=== PATIENT | female | born 1960 | race Two or more races ===

== ENCOUNTER 2017-04-03 06:05 | Emergency (ER) | payer OTHER ==
[~2017-04-03] VITALS: Ht 175.3 cm; Wt 74.4 kg
--- NOTE | 2017-04-03 06:16 | NUR ---
57 YO FEMALE BB FAMILY. PATIENT IS A/O X 3, C/O FEVER, NAUSEA, VOMIT SINCE MONDAY. PATIENT AMBULATED TO ER BED, SKIN WARM AND DRY, RESP EVEN AND UNLABORED. 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 AWAITING ORDERS FROM PROVIDER, WILL CONTINUE TO MONITOR
[2017-04-03] MEDS ORDERED: HYDROCODONE BIT/HOMATROPINE 5 ML UDC ONE (06:34)
[2017-04-03] MEDS ORDERED: KETOROLAC TROMETHAMINE INJ 30 MG/ML VIAL ONE (06:34)
[2017-04-03] MEDS ORDERED: ONDANSETRON HCL/PF 4 MG/2 ML VIAL ONE (06:34)
--- NOTE | 2017-04-03 06:50 | NUR ---
20G LEFT WRIST IV STARTED. BLOOD SAMPLE OBTAINED AND SENT TO LAB. MEDICATED PT ORDERED
[2017-04-03] MEDS: HYDROCODONE BIT/HOMATROPINE 5 ML UDC PO ONE (06:53)
[2017-04-03] MEDS: KETOROLAC TROMETHAMINE INJ 30 MG/ML VIAL IV ONE (06:53)
[2017-04-03] MEDS: ONDANSETRON HCL/PF - ER 4 MG/2 ML VIAL IV ONE (06:53)
[2017-04-03] MEDS: IV NS 0.9% 1,000 ML BAG IV ONE (06:53)
[2017-04-03 07:02] LABS: BASOPHILS % (AUTO) 0.2 % (0.0-2.0); EOSINOPHILS % (AUTO) 0.1 % (0.0-6.0); HEMATOCRIT 39 % (33-45); HEMOGLOBIN 13.3 g/dL (11.5-14.8); LYMPHOCYTES # (AUTO) 0.6 /CMM (0.8-4.8); LYMPHOCYTES % (AUTO) 7.2 % (20.0-44.0); MEAN CORPUSCULAR HEMOGLOBIN 30 PG (26.0-33.0); MEAN CORPUSCULAR HGB CONC 34 g/dl (31.0-36.0); MEAN CORPUSCULAR VOLUME 87 fL (82-100); MONOCYTES # (AUTO) 0.3 /CMM (0.1-1.30); MONOCYTES % (AUTO) 4.1 % (2.0-12.0); NEUTROPHILS # (AUTO) 7.1 /CMM (1.8-8.9); NEUTROPHILS % (AUTO) 88.4 % (43.0-81.0); PLATELET COUNT (AUTO) 244 /CMM (150-450); RDW COEFFICIENT OF VARIATION 13.7 (11.5-15.0); RED BLOOD CELL COUNT(AUTO) 4.44 MIL/uL (4.0-5.2)
[2017-04-03 07:22] LABS: ALBUMIN 4.3 g/dL (3.4-5.0); BILIRUBIN,TOTAL 0.7 mg/dL (0.2-1.0); CALCIUM, SERUM 8.9 mg/dL (8.5-10.1); CREATININE 0.9 mg/dL (0.6-1.3); POTASSIUM 3.5 mmol/L (3.5-5.1); TOTAL PROTEIN, SERUM 8.1 g/dL (6.4-8.2)
--- NOTE | 2017-04-03 07:56 | NUR ---
IV removed. Catheter intact and site benign. Pressure and 4x4 applied to site. No bleeding noted.
--- NOTE | 2017-04-03 07:56 | NUR ---
Patient discharged to home in stable condition. Written and verbal after care instructions given. Patient verbalizes understanding of instruction.
[2017-04-03 07:57] VITALS: BP 110/67
== END 2017-04-03 07:59 | disposition home or self-care (01) ==
LOC: ER 06:08
DX: J10.1 Influenza due to other identified influenza virus with other respiratory manifestations (principal)
CPT/HCPCS: 36415; 71045; 80053; 85025; 87804 ×2; 96361; 96374; 96375; 99285; A4606; J1885; J2405 ×2; Z7610; 87400

== ENCOUNTER 2017-04-05 00:35 | Emergency (ER) | payer OTHER ==
[~2017-04-05] VITALS: Ht 175.3 cm; Wt 69.9 kg
[2017-04-05 00:46] VITALS: BP 123/71
--- NOTE | 2017-04-05 00:55 | NUR ---
Pt has decided she no longer wishes to be seen by a MD. pt ambulatory w/ steady gait, afebrile w/ resp even & unlabored, VSS. pt has left the ER w/ family.
== END 2017-04-05 00:55 | disposition left against medical advice (07) ==
LOC: ER 00:38
DX: Z53.21 Procedure and treatment not carried out due to patient leaving prior to being seen by health care provider (principal)
CPT/HCPCS: A4606; Z7610

== ENCOUNTER 2018-05-29 00:46 | Inpatient (IN) | payer OTHER ==
[~2018-05-29] VITALS: Ht 167.6 cm; Wt 76.4 kg
--- NOTE | 2018-05-29 01:07 | NUR ---
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 TOOK 1 NITRO, PAIN WENT DOWN FROM 10/10 TO 7/10. NO ASA TAKEN. PT AOX4. NAD NOTED. RESP EVEN AND UNLABORED. PT ON MONITOR IN BED 9 WITH DAUGHTER AT BEDSIDE. WILL CONTINUE TO MONITOR.
--- NOTE | 2018-05-29 01:08 | NUR ---
TECH AT BEDSIDE FOR EKG
--- NOTE | 2018-05-29 01:31 | NUR ---
PHLEB AT BEDSIDE FOR BLOOD DRAW
[2018-05-29 01:41] LABS: BASOPHILS # (AUTO) 0.1 /CMM (0.0-0.2); BASOPHILS % (AUTO) 0.6 % (0.0-2.0); EOSINOPHILS % (AUTO) 0.3 % (0.0-6.0); HEMATOCRIT 41 % (33-45); HEMOGLOBIN 13.4 g/dL (11.5-14.8); LYMPHOCYTES # (AUTO) 1.9 /CMM (0.8-4.8); LYMPHOCYTES % (AUTO) 15.3 % (20.0-44.0); MEAN CORPUSCULAR HGB CONC 33 g/dl (31.0-36.0); MEAN CORPUSCULAR VOLUME 90 fL (82-100); MONOCYTES # (AUTO) 0.7 /CMM (0.1-1.30); MONOCYTES % (AUTO) 5.6 % (2.0-12.0); NEUTROPHILS # (AUTO) 9.9 /CMM (1.8-8.9); NEUTROPHILS % (AUTO) 78.2 % (43.0-81.0); PLATELET COUNT (AUTO) 456 /CMM (150-450); RED BLOOD CELL COUNT(AUTO) 4.54 MIL/uL (4.0-5.2); WHITE BLOOD COUNT (AUTO) 12.7 K/uL (4.3-11.0)
[2018-05-29 01:49] LABS: CREATININE 0.6 mg/dL (0.6-1.3); POTASSIUM 3.8 mmol/L (3.5-5.1)
--- NOTE | 2018-05-29 01:50 | NUR ---
RADIOLOGY AT BEDSIDE FOR XRAY
--- NOTE | 2018-05-29 02:08 | NUR ---
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
[2018-05-29] MEDS ORDERED: HEPARIN INFUSION/D5W 500 ML IV ONE ×2 (02:26→02:30)
[2018-05-29] MEDS ORDERED: ZOLPIDEM TARTRATE 5 MG TABLET PO PRN (02:30)
[2018-05-29] MEDS ORDERED: ACETAMINOPHEN 325 MG TABLET PO PRN (02:30)
[2018-05-29] MEDS ORDERED: HEPARIN SODIUM, PORCINE 5000 UNITS/1 ML VIAL IV ONE (02:30)
[2018-05-29] MEDS ORDERED: ONDANSETRON HCL/PF 4 MG/2 ML VIAL IVP PRN (02:30)
[2018-05-29] MEDS ORDERED: HYDROCODONE/APAP 5/325MG 1 EACH TABLET PO PRN (02:30)
[2018-05-29] MEDS ORDERED: MAGNESIUM HYDROXIDE 30 ML UDC PO PRN (02:30)
[2018-05-29] MEDS ORDERED: Z GUARD REMEDY 2 OZ OINT TP PRN (02:30)
[2018-05-29] MEDS ORDERED: MAG HYDROX/AL HYDROX/SIMETH 30 ML UDC PO PRN (02:30)
[2018-05-29] MEDS ORDERED: ASPIRIN 81 MG TAB.CHEW PO ONE (02:30)
--- NOTE | 2018-05-29 02:39 | NUR ---
CALLED [facility] TO TRANSFER FOR HIGHER LEVEL OF CARE. UNABLE TO ACCEPT DUE TO NO TELE BEDS.
--- NOTE | 2018-05-29 03:04 | NUR ---
CALLED [facility] FOR POSSIBLE TRANSFER FOR HIGHER LEVEL OF CARE. FAXED CLINICALS. WAITINF FOR CALL BACK.
--- NOTE | 2018-05-29 03:40 | NUR ---
REPORT GIVEN TO JOÃO DORSEY FOR [facility]
--- NOTE | 2018-05-29 04:20 | NUR ---
TELE/RN RECEIVE PATIENT FROM [facility]IA [facility] ADMITTED FOR CP WITH HEPARIN DRIP AT 1,155 UNITS PER HOUR. PATIENT IS AWAKE, ALERT, ORIENTED, NO C/O OF CP AT THIS TIME, NO DISTRESS NOTED, ADMISSION DONE PER PROTOCOL, PLAN OF CARE DISCUSSED WITH THE PATIENT VERBALIZED UNDERSTANDING AND AGREEMENT. TAUGHT THE USE OF CALL LIGHT AND PLACED AT BEDSIDE WITHIN REACH. PATIENT IS VIETNAMESE SPEAKING, DAUGHTER AT BEDSIDE SPEAKS GOOD ROMANIAN AND INTERPRETS FOR THE PATIENT. WILL MONITOR.
--- NOTE | 2018-05-29 05:02 | NUR ---
TELE/RN CALLED [facility] TO SPEAK TO DR. PATTERSON TO GET ORDER FOR THE HEPARIN DRIP. LEFT MESSAGE.
[2018-05-29 05:30] VITALS: BP 106/67
--- NOTE | 2018-05-29 06:52 | NUR ---
TELE/RN PATIENT IS AWAKE AT THIS TIME, COMFORTABLE, NO C/O PAIN, NO DISTRESS NOTED, ALL NEEDS ATTENDED AT THIS TIME, WILL CONTINUE TO MONITOR.
--- NOTE | 2018-05-29 06:52 | NUR ---
TELE/RN NO CALL BACK FROM DR. JENSEN YET, ATTEMPTED TO CALL [facility] BUT UNSUCCESSFUL. WILL ENDORSE TO NEXT RN.
--- NOTE | 2018-05-29 07:30 | NUR ---
Tele/RN - Assessment Patient in bed awake, alert and oriented x 4, denies chest pain at this time, stable on room air, tele shows SR. Patient currently on heparin drip per [facility] weight based protocol. Patient was placed on NPO for possible procedure. Skin is intact. Patient is ambulatory with steady gait. All needs attended. Patient and daughter at bedside updated on plan of care. Will continue with current medical management.
[2018-05-29] MEDS ORDERED: HEPARIN INFUSION/D5W 500 ML IV PRN (07:45)
--- NOTE | 2018-05-29 07:45 | NUR ---
Tele/RN - Heparin order Continue heparin order from ER per David Ochoa NP. Patient will be transferred to [facility] for cardiac cath today, accepting doctor is Dr. Lockhart.
[2018-05-29 08:00] VITALS: BP 117/72
[2018-05-29] MEDS ORDERED: NITROGLYCERIN 0.4 MG/TAB BOTTLE SL PRN (08:00)
[2018-05-29] MEDS ORDERED: MORPHINE SULFATE INJ 4 MG/ML DISP.SYRIN IV PRN (08:00)
[2018-05-29 08:57] LABS: CHOLESTEROL 235 mg/dL (<200); HDL CHOLESTEROL 86 mg/dL (40-60); LDL 134 mg/dL (0-99); TRIGLYCERIDES 59 mg/dL (30-150)
[2018-05-29 09:00] VITALS: BP 117/71
[2018-05-29] MEDS ORDERED: ATORVASTATIN 40 MG TABLET PO SCH (09:00)
[2018-05-29] MEDS ORDERED: METOPROLOL TARTRATE 25 MG TABLET PO SCH (09:00)
--- NOTE | 2018-05-29 09:10 | NUR ---
Tele/RN - Discharge Patient transferred to [facility] for cardiac cath. Discharge instructions given to patient and daughter both verbalized understanding. Discharge papers were signed by the patient, no belongings on file. Patient will continue heparin drip at 1155 units/hr (23 ml/hr) as ordered. Report given to JOÃO Bowling ([facility] transport) for continuity of care. Called to give report to [place] radiographer cardiac catheterization at [phone] but no answer. JOÃO Bowling made aware.
== END 2018-05-29 09:10 | disposition short-term general hospital (02) | DRG 190 ==
LOC: ER 00:47 → TELE 03:17
PROVIDERS: ADMIT Nurse Practitioner Acute Care; ATTEND Nurse Practitioner Acute Care
DX: I21.4 Non-ST elevation (NSTEMI) myocardial infarction (principal); D72.829 Elevated white blood cell count, unspecified; E66.9 Obesity, unspecified; Z68.27 Body mass index [BMI] 27.0-27.9, adult; R73.9 Hyperglycemia, unspecified
CPT/HCPCS: 36415; 71045-TC; 80048-TC; 80061-TC; 83880; 84484-TC; 85025-TC; 85610-TC; 85730-TC; 93307-TC; G0378; J1644

== ENCOUNTER 2019-05-19 19:07 | Inpatient (IN) | payer OTHER ==
[~2019-05-19] VITALS: Ht 170.2 cm; Wt 79.4 kg
--- NOTE | 2019-05-19 19:20 | NUR ---
BIB DTR FOR C/O L CP RADITING TO THE BACK X 2 DAYS, -SOB, -N/V
--- NOTE | 2019-05-19 19:28 | NUR ---
AT THE BED SIDE
[2019-05-19 19:59] LABS: BASOPHILS # (AUTO) 0.1 /CMM (0.0-0.2); BASOPHILS % (AUTO) 0.8 % (0.0-2.0); EOSINOPHILS % (AUTO) 2.1 % (0.0-6.0); HEMATOCRIT 39 % (33-45); LYMPHOCYTES # (AUTO) 2.2 /CMM (0.8-4.8); LYMPHOCYTES % (AUTO) 26.9 % (20.0-44.0); MEAN CORPUSCULAR HGB CONC 33 g/dl (31.0-36.0); MEAN CORPUSCULAR VOLUME 92 fL (82-100); MONOCYTES # (AUTO) 0.6 /CMM (0.1-1.30); MONOCYTES % (AUTO) 6.9 % (2.0-12.0); NEUTROPHILS # (AUTO) 5.1 /CMM (1.8-8.9); NEUTROPHILS % (AUTO) 63.3 % (43.0-81.0); PLATELET COUNT (AUTO) 374 /CMM (150-450); RED BLOOD CELL COUNT(AUTO) 4.27 MIL/uL (4.0-5.2); WHITE BLOOD COUNT (AUTO) 8.1 K/uL (4.3-11.0)
[2019-05-19 20:30] LABS: ALANINE AMINOTRANSFERASE 31 U/L (12-78); ALBUMIN 3.9 g/dL (3.4-5.0); ALKALINE PHOSPHATASE 105 U/L (46-116); ASPARTATE AMINOTRANSFERASE 26 U/L (15-37); BILIRUBIN,DIRECT 0.1 mg/dL (0.0-0.2); BILIRUBIN,TOTAL 0.4 mg/dL (0.2-1.0); CALCIUM, SERUM 8.9 mg/dL (8.5-10.1); CARBON DIOXIDE 28 mmol/L (21-32); CHLORIDE 106 mmol/L (98-107); CREATININE 0.7 mg/dL (0.6-1.3); GLUCOSE 103 mg/dL (74-106); POTASSIUM 4.2 mmol/L (3.5-5.1); SODIUM SERUM 140 mmol/L (136-145); TOTAL PROTEIN, SERUM 7.6 g/dL (6.4-8.2); UREA NITROGEN, BLOOD 13 mg/dL (7-18)
[2019-05-19] MEDS ORDERED: ASPI-1169 PO (20:36)
[2019-05-19] MEDS ORDERED: LISI2.5T2 PO (20:36)
[2019-05-19] MEDS ORDERED: CARV3.12 PO (20:36)
--- NOTE | 2019-05-19 20:55 | NUR ---
GAVE MOVESHEET AND CLINICALS TO ADMITTING
[2019-05-19] MEDS ORDERED: ASPIRIN 325 MG TABLET PO ONE (21:30)
[2019-05-19] MEDS ORDERED: ASPIRIN 325 MG TABLET ONE (21:39)
--- NOTE | 2019-05-19 22:18 | NUR ---
dr. lopez at the bed side
--- NOTE | 2019-05-19 22:40 | NUR ---
dr Donald hospitalist at the bed side
[2019-05-19] MEDS ORDERED: HYDROCODONE/APAP 5/325MG 1 EACH TABLET PO PRN (23:00)
[2019-05-19] MEDS ORDERED: ACETAMINOPHEN 325 MG TABLET PO PRN (23:00)
[2019-05-19] MEDS ORDERED: Z GUARD REMEDY 2 OZ OINT TP PRN (23:00)
[2019-05-19] MEDS ORDERED: MAG HYDROX/AL HYDROX/SIMETH 30 ML UDC PO PRN (23:00)
[2019-05-19] MEDS ORDERED: ONDANSETRON HCL/PF 4 MG/2 ML VIAL IVP PRN (23:00)
[2019-05-19] MEDS ORDERED: MAGNESIUM HYDROXIDE 30 ML UDC PO PRN (23:00)
[2019-05-19] MEDS ORDERED: ZOLPIDEM TARTRATE 5 MG TABLET PO PRN (23:00)
--- NOTE | 2019-05-19 23:04 | NUR ---
REPROT GIVEN TO ELENA ON THE FIRST FLOOR
[2019-05-20] VITALS (7 sets, daily range): BP systolic 108–150; BP diastolic 49–86
--- NOTE | 2019-05-20 00:20 | NUR ---
pt was transferred to rm 119 under ACLS
--- NOTE | 2019-05-20 00:35 | NUR ---
RN NOTE PT ARRIVED TO UNIT RECEIVED REPORT FROM JANET MOYER. PT A/O X 4 LATVIAN SPEAKING. IV SITE TO RIGHT AC INTACT AND FLUSHING WELL. PT PLACED ON TELE MONITOR CURRENTLY SR 85. FAMILY AT BEDSIDE. BRUNO IN LOWEST POSITION CALL LIGHT WITHIN REACH. WILL AWAIT FOR ORDERS FROM
--- NOTE | 2019-05-20 07:00 | NUR ---
RN CLOSING NOTE PT ASLEEP IN BED, IV SITE TO RIGHT AC PATENT AND INTACT, BED IN LOWEST POSITION, CALL LIGHT WITHIN REACH . TELE MONITOR CURRENTLY SR 65. WILL ENDORSE TO AM NURSE FOR BROWN
[2019-05-20 07:29] LABS: BASOPHILS % (AUTO) 0.6 % (0.0-2.0); EOSINOPHILS % (AUTO) 2.7 % (0.0-6.0); HEMATOCRIT 36 % (33-45); HEMOGLOBIN 12.1 g/dL (11.5-14.8); LYMPHOCYTES # (AUTO) 2.2 /CMM (0.8-4.8); LYMPHOCYTES % (AUTO) 33.1 % (20.0-44.0); MEAN CORPUSCULAR HGB CONC 33 g/dl (31.0-36.0); MEAN CORPUSCULAR VOLUME 90 fL (82-100); MONOCYTES # (AUTO) 0.5 /CMM (0.1-1.30); MONOCYTES % (AUTO) 7.4 % (2.0-12.0); NEUTROPHILS # (AUTO) 3.8 /CMM (1.8-8.9); NEUTROPHILS % (AUTO) 56.2 % (43.0-81.0); PLATELET COUNT (AUTO) 316 /CMM (150-450); RED BLOOD CELL COUNT(AUTO) 4.04 MIL/uL (4.0-5.2); WHITE BLOOD COUNT (AUTO) 6.7 K/uL (4.3-11.0)
--- NOTE | 2019-05-20 07:30 | NUR ---
RN NOTES received patient in bed, asleep but easily awaken by verbal stimuli. verbal but expresses self in Khmer language better.on room air, not on any form of distress, breathing even and unlabored. noted with grimace and with complaint of pain but refuses medication. patient encourage to call for help and assistance,she is also made aware that we have an sammarinese staff to translate for her. oriented on the usue of call light. safety measures observeed and maintained. call ligh placed within reach. will continue to monitor patient accordingly
[2019-05-20 07:52] LABS: THYROID STIMULATING HORMONE 4.597 uIU/mL (0.358-3.74)
[2019-05-20 07:58] LABS: CALCIUM, SERUM 8.8 mg/dL (8.5-10.1); CREATININE 0.5 mg/dL (0.6-1.3); MAGNESIUM 1.9 mg/dL (1.8-2.4); PHOSPHORUS 3.4 mg/dL (2.5-4.9); POTASSIUM 3.8 mmol/L (3.5-5.1)
[2019-05-20] MEDS: PANTOPRAZOLE 40 MG TABLET.DR PO SCH (09:55)
--- NOTE | 2019-05-20 11:00 | NUR ---
RN NOTES seen and examined by Dr. Be with orders for cardiac catheterization with 3d image. consent obtained from the patient herself with edison (daughter to co-signed with her
[2019-05-20] MEDS: ASPIRIN 81 MG TAB.CHEW PO SCH (11:33)
[2019-05-20] MEDS: CARVEDILOL 3.125 MG TABLET PO SCH ×2 (11:40→17:00)
--- NOTE | 2019-05-20 17:30 | NUR ---
RN NOTES Patient brought ot cardiac lab
[2019-05-20] MEDS ORDERED: CT SWABBABLE VALVE TRANS SET 1 EA INFUS.SET MC ONE (17:40)
[2019-05-20] MEDS ORDERED: IV NS 0.9% 250 ML IV ONE (17:40)
[2019-05-20] MEDS ORDERED: IOHEXOL-350 100 ML VIAL IV ONE (17:40)
[2019-05-20] MEDS ORDERED: NITROGLYCERIN 0.4 MG/TAB BOTTLE ONE (18:15)
[2019-05-20] MEDS ORDERED: METOPROLOL TARTRATE INJ 5 MG/5 ML AMPUL ONE ×2 (18:16→18:46)
[2019-05-20] MEDS: METOPROLOL TARTRATE INJ 5 MG/5 ML AMPUL IVP PRN ×10 (18:23→19:08)
[2019-05-20] MEDS ORDERED: NITROGLYCERIN 0.4 MG/TAB BOTTLE SL PRN (18:30)
--- NOTE | 2019-05-20 19:35 | NUR ---
RN NOTE RECEIVED PT FROM [facility] VIA WHEELCHAIR WITH RN AT BEDSIDE. A/O X4 ITALIAN SPEAKING WITH DAUGHTER AT BEDSIDE. DENIES CHEST PAIN AT THIS TIME. ON ROOM AIR. BREATHING REGULAR AND UNLABORED. CALL LIGHT WITHIN REACH. WILL MONITOR.
[2019-05-21 04:00] VITALS: BP 97/49
[2019-05-21 08:00] VITALS: BP 101/54
--- NOTE | 2019-05-21 08:14 | NUR ---
rn initial notes received pt awake in bed with NAD; pt verbally responsive and denies pain. safety ensured. will monitor. call light within reach and bed alarm on
[2019-05-21] MEDS: ASPIRIN 81 MG TAB.CHEW PO SCH (09:13)
[2019-05-21] MEDS: PANTOPRAZOLE 40 MG TABLET.DR PO SCH (09:13)
[2019-05-21] MEDS: CARVEDILOL 3.125 MG TABLET PO SCH (09:14)
[2019-05-21 12:00] VITALS: BP 113/66
[2019-05-21 16:00] VITALS: BP 113/66
--- NOTE | 2019-05-21 16:54 | NUR ---
rn notes pt seen by Karen Hitchcock ;cleared for discharge. all dc instructions given to the pt and famiily, verbalized understanding. belonging list signed. ivhl removed, no bleeding noted. pt has no c/o any pain. left unit ambulatory in stable condition
== END 2019-05-21 16:55 | disposition home or self-care (01) | DRG 198 ==
LOC: ER 19:08 → TELE-TD 22:45 → TELE1 22:51 → MEDSG1 05-20 21:42
PROVIDERS: ADMIT Student in an Organized Health Care Education/Training Program; ATTEND Registered Nurse
DX: R07.89 Other chest pain (principal); I25.2 Old myocardial infarction; I27.20 Pulmonary hypertension, unspecified; E78.5 Hyperlipidemia, unspecified; F41.9 Anxiety disorder, unspecified; I10 Essential (primary) hypertension; Z79.899 Other long term (current) drug therapy; Z79.82 Long term (current) use of aspirin; I08.0 Rheumatic disorders of both mitral and aortic valves; K21.9 Gastro-esophageal reflux disease without esophagitis
CPT/HCPCS: 36415; 71045-TC; 75574; 80048-TC; 80061-TC; 80076-TC; 83735-TC; 84100-TC; 84443-TC; 84484-TC; 85025-TC; 85378-TC; 87081-TC; G0378; J3490; J7050; Q9967

== ENCOUNTER 2021-12-05 14:53 | Emergency (ER) | payer OTHER ==
[~2021-12-05] VITALS: Ht 167.6 cm; Wt 77.1 kg
[~2021-12-05 14:53] MED LIST: ASPI-1169 PO; CARV3.12 PO
--- NOTE | 2021-12-05 15:00 | NUR ---
BIB DAUGHTER C/O L THUMB & INDEX FINGER SHARP PAIN 7/10 GOING TO SHOULDER AND NECK x 4DAYS. WILL CONTINUE TO MONITOR THE PATIENT.
[2021-12-05] MEDS ORDERED: KETOROLAC TROMETHAMINE 15 MG/ML VIAL ONE (15:57)
[2021-12-05] MEDS ORDERED: KETOROLAC TROMETHAMINE INJ 30 MG/ML VIAL IM ONE (16:00)
[2021-12-05] MEDS ORDERED: IBUP-1955 PO (17:41)
[2021-12-05] MEDS ORDERED: METH4TAB17 PO (17:41)
--- NOTE | 2021-12-05 17:51 | NUR ---
Patient discharged to home in stable condition. Written and verbal after care instructions given. Patient verbalizes understanding of instruction.
[2021-12-05 17:54] VITALS: BP 141/74
== END 2021-12-05 17:54 | disposition home or self-care (01) ==
LOC: ER 14:57
DX: S64.22XA Injury of radial nerve at wrist and hand level of left arm, initial encounter (principal); M54.12 Radiculopathy, cervical region; I10 Essential (primary) hypertension; Z90.49 Acquired absence of other specified parts of digestive tract; Z79.899 Other long term (current) drug therapy; X58.XXXA Exposure to other specified factors, initial encounter; Y93.89 Activity, other specified; Y92.89 Other specified places as the place of occurrence of the external cause; Y99.8 Other external cause status
CPT/HCPCS: 99284; 96372; 73080; 73110; J1885

== ENCOUNTER 2023-04-19 00:29 | Emergency (ER) | payer OTHER ==
[~2023-04-19] VITALS: Ht 167.6 cm; Wt 77.1 kg
[~2023-04-19 00:29] MED LIST changes: +IBUP-1955 PO; +METH4TAB17 PO
[2023-04-19 00:53] VITALS: BP 147/85; TEMP 98
[2023-04-19] MEDS ORDERED: FLUORESCEIN SODIUM OPHTH 1 EA STRIP ONE (01:28)
[2023-04-19] MEDS ORDERED: TETRACAINE HCL 0.5% OPHTALMIC 15 ML BOTTLE OP ONE (01:30)
[2023-04-19] MEDS ORDERED: FLUORESCEIN SODIUM OPHTH 1 EA STRIP OP ONE (01:30)
[2023-04-19] MEDS ORDERED: CIPR5DRO EACHEYE (02:26)
[2023-04-19 02:27] VITALS: O2SAT 99
== END 2023-04-19 02:29 | disposition home or self-care (01) ==
LOC: ER 00:31
DX: H10.9 Unspecified conjunctivitis (principal); I10 Essential (primary) hypertension; Z79.82 Long term (current) use of aspirin; Z79.899 Other long term (current) drug therapy; Z98.890 Other specified postprocedural states

== ENCOUNTER 2024-03-17 16:34 | Emergency (ER) | payer MEDICARE, OTHER ==
[~2024-03-17] VITALS: Ht 162.6 cm; Wt 77.1 kg
[~2024-03-17 16:34] MED LIST changes: +CIPR5DRO EACHEYE
[2024-03-17] MEDS ORDERED: ONDANSETRON HCL/PF 4 MG/2 ML VIAL ONE (17:25)
[2024-03-17] MEDS ORDERED: FAMOTIDINE/PF INJ 20 MG/2 ML VIAL IV ONE (17:25)
[2024-03-17 17:29] LABS: BASOPHILS % (AUTO) 0.1 % (0.0-2.0); EOSINOPHILS % (AUTO) 0.3 % (0.0-6.0); HEMATOCRIT 39 % (33-45); HEMOGLOBIN 13.4 g/dL (11.5-14.8); LYMPHOCYTES # (AUTO) 0.6 K/uL (0.8-4.8); LYMPHOCYTES % (AUTO) 4.1 % (20.0-44.0); MEAN CORPUSCULAR HEMOGLOBIN 30 PG (26.0-33.0); MEAN CORPUSCULAR HGB CONC 34 g/dl (31.0-36.0); MEAN CORPUSCULAR VOLUME 88 fL (82-100); MONOCYTES # (AUTO) 0.4 K/uL (0.1-1.30); MONOCYTES % (AUTO) 2.9 % (2.0-12.0); NEUTROPHILS # (AUTO) 13.8 K/uL (1.8-8.9); NEUTROPHILS % (AUTO) 92.6 % (43.0-81.0); PLATELET COUNT (AUTO) 362 K/uL (150-450); RED BLOOD CELL COUNT(AUTO) 4.43 MIL/uL (4.0-5.2); RED CELL DISTRIBUTION WIDTH 13.5 % (11.5-15.0); WHITE BLOOD COUNT (AUTO) 14.9 K/uL (4.3-11.0)
[2024-03-17] MEDS: IV NS 0.9% 1,000 ML BAG IV ONE (17:32)
[2024-03-17] MEDS: ONDANSETRON HCL/PF 4 MG/2 ML VIAL IVP ONE (17:33)
[2024-03-17] MEDS: FAMOTIDINE/PF INJ 20 MG/2 ML VIAL IV ONE (17:33)
[2024-03-17 17:48] LABS: ALANINE AMINOTRANSFERASE 34 U/L (12-78); ALBUMIN 4.2 g/dL (3.4-5.0); ALKALINE PHOSPHATASE 88 U/L (46-116); ASPARTATE AMINOTRANSFERASE 27 U/L (15-37); BILIRUBIN,DIRECT 0.2 mg/dL (0.0-0.2); CALCIUM, SERUM 9.3 mg/dL (8.5-10.1); CARBON DIOXIDE 28 mmol/L (21-32); CHLORIDE 104 mmol/L (98-107); CREATININE 0.7 mg/dL (0.6-1.3); GLUCOSE 112 mg/dL (74-106); LIPASE 35 U/L (16-77); POTASSIUM 3.7 mmol/L (3.5-5.1); SODIUM SERUM 141 mmol/L (136-145); TOTAL PROTEIN, SERUM 8.2 g/dL (6.4-8.2); UREA NITROGEN, BLOOD 17 mg/dL (7-18)
[2024-03-17] MEDS ORDERED: ONDA4TAB5 PO (18:26)
[2024-03-17] MEDS ORDERED: AMOX-430 PO (19:50)
[2024-03-17] MEDS ORDERED: AMOX/CLAVULANATE 875 MG TABLET ONE (20:01)
[2024-03-17 20:13] LABS: APPEARANCE,URINE CLEAR (CLEAR); BILIRUBIN,URINE NEGATIVE (NEGATIVE); BLOOD, URINE TRACE-INTA Ery/uL (NEGATIVE); COLOR,URINE YELLOW (YELLOW); KETONES,URINE 1+ mg/dL (NEGATIVE); LEUKOCYTE ESTERASE ,URINE NEGATIVE (NEGATIVE); NITRITE, URINE NEGATIVE (NEGATIVE); PROTEIN,URINE NEGATIVE (NEGATIVE); UGLUCOSE NEGATIVE (NEGATIVE); UROBILINOGEN,URINE 0.2 EU/dL (0.2)
[2024-03-17] MEDS: AMOX/CLAVULANATE 875 MG TABLET PO ONE (20:19)
[2024-03-17 20:45] VITALS: BP 140/90; TEMP 98.5; O2SAT 96
[2024-03-17 21:28] LABS: ADD URINE CULTURE NO; BACTERIA,URINE None seen /HPF (None Seen); SQUAMOUS EPITHELIAL CELL,UR 0-2 /HPF (None Seen); WBC,URINE 0-2 /HPF (0-3)
== END 2024-03-17 20:25 | disposition home or self-care (01) ==
LOC: ER 16:45
DX: R11.2 Nausea with vomiting, unspecified (principal); R19.7 Diarrhea, unspecified; I10 Essential (primary) hypertension; I48.91 Unspecified atrial fibrillation; Z79.82 Long term (current) use of aspirin
CPT/HCPCS: 99285; 74176 ×2; 96374; 71045; 96361; 96375; 93005; 85025; 80048; 87086; 83690; 80076; 81001; 36415; 84484; J3490; J2405